=== PATIENT | male | born 1990 | race Caucasian/White ===

== ENCOUNTER 2020-12-01 22:33 | Emergency (ER) | payer OTHER ==
[~2020-12-01] VITALS: Ht 185.4 cm; Wt 103.7 kg
--- NOTE | 2020-12-01 23:41 | NUR ---
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
--- NOTE | 2020-12-02 00:06 | NUR ---
PT C/O OF MID BACK PAIN AND OCCASIONAL NUMBNESS IN RIGHT FOOT. PT STATES HE WAS AT WORK TAKING OUT TRASH WITH INJURY OCCURED DENIES LOC AND HEAD INJURY. PT AMBULATED TO ROOM. AT BEDSIDE, ATTACHED TO MONITORS. VSS. NADN BED IN LOWEST POSITION, RAILS ENGAGED. CALL LIGHT WITHIN REACH. TM
[2020-12-02] MEDS ORDERED: DIAZEPAM 5 MG TABLET ONE (01:20)
[2020-12-02] MEDS ORDERED: KETOROLAC 30 MG/1 ML ONE (01:20)
[2020-12-02] MEDS ORDERED: LIDODERM 5% PATCH TD ONE ×2 (01:20→01:30)
[2020-12-02 01:29] VITALS: BP 148/95
[2020-12-02] MEDS ORDERED: KETOROLAC 30 MG/1 ML IM ONE (01:30)
[2020-12-02] MEDS ORDERED: DIAZEPAM 5 MG TABLET PO ONE (01:30)
== END 2020-12-02 03:20 ==
LOC: ED 12-02 00:16
DX: S39.012A Strain of muscle, fascia and tendon of lower back, initial encounter (principal); S29.012A Strain of muscle and tendon of back wall of thorax, initial encounter; M47.814 Spondylosis without myelopathy or radiculopathy, thoracic region; M48.07 Spinal stenosis, lumbosacral region; Z72.9 Problem related to lifestyle, unspecified; F17.210 Nicotine dependence, cigarettes, uncomplicated; X58.XXXA Exposure to other specified factors, initial encounter; Y93.89 Activity, other specified; Y92.89 Other specified places as the place of occurrence of the external cause; Y99.8 Other external cause status
CPT/HCPCS: 72072; 72110; 96372; 99284; J1885